=== PATIENT | male | born 1950 | race Caucasian/White ===

== ENCOUNTER → 2017-05-08 | Outpatient (CLI) | payer BC ==
[2017-05-08 08:16] LABS: Blood Urea Nitrogen 16 mg/dL (9-20); Non-African American GFR(MDRD) >60 (>60 ml/min/1.73 sqM)
--- NOTE | 2017-05-08 10:28 | CT ---
EXAMINATION TYPE: CT ChestAbdPelvis w con DATE OF EXAM: 05/08/2017 COMPARISON: CT abdomen pelvis April 28, 2016. PET CT May 17, 2016. HISTORY: Colon CA with last chemotherapy February 15 CT DLP: 476.9 mGycm. Automated Exposure Control for Dose Reduction was Utilized. CONTRAST: CT scan of the thorax, abdomen and pelvis is performed with IV Contrast, patient injected with 100 mL of Omnipaque 300. FINDINGS: LUNGS: There is redemonstration of moderate biapical pleural/parenchymal scarring unchanged from PET/ CT. And there is minimal linear scarring anteriorly in the right midlung axial image 46 just above di aphragm redemonstrated Remainder of lungs are clear without suspicious new parenchymal nodule or mass identified. There is no pleural effusion or pneumothorax seen. The tracheobronchial tree is patent. MEDIASTINUM: There are no greater than 1 cm hilar or mediastinal lymph nodes. No cardiomegaly or pe ricardial effusion is seen. Three-vessel coronary artery calcification is present. OTHER: No additional significant abnormality is seen. LIVER/GB: No significant abnormality is appreciated. PANCREAS: No significant abnormality is seen. SPLEEN: No significant abnormality is seen. ADRENALS: No significant abnormality is seen. KIDNEYS: Multiple simple appearing cysts are redemonstrated scattered throughout both kidneys. There is stable 3.0 cm exophytic hyperdense lesion medially upper pole level right kidney felt to reflect p roteinaceous cyst. BOWEL: There are surgical sutures from prior distal colonic surgery in the pelvis near axial image 10 3. The oral contrast does not reach colonic level making evaluation slightly suboptimal. Patient has very little intra-abdominal fat also making evaluation suboptimal. There is some prominence of fecal material throughout the colon. There is no suspicious small or large bowel dilatation seen. GENITAL ORGANS: Central zone calcifications are seen in normal size prostate gland. LYMPH NODES: No greater than 1cm abdominal or pelvic lymph nodes are appreciated. OSSEOUS STRUCTURES: There is facet arthropathy in the lower lumbar spine. OTHER: There is mild to moderate calcified plaque of the aorta extending into branch vessels. IMPRESSION: Interval partial colectomy at level of sigmoid colon. No suspicious residual or new mass or adenopathy is seen to suggest local or distant neoplastic recurrence.
== END | disposition home or self-care (01) ==
LOC: RADCTMAIN 07:26
PROVIDERS: ATTEND Internal Medicine Hematology & Oncology
DX: C18.7 Malignant neoplasm of sigmoid colon (principal); Z90.49 Acquired absence of other specified parts of digestive tract
CPT/HCPCS: 82565; 84520; 71260; 74177; 36415; Q9967

== ENCOUNTER → 2018-05-10 | Outpatient (CLI) | payer BC ==
[2018-05-10 11:31] LABS: Blood Urea Nitrogen 18 mg/dL (9-20)
--- NOTE | 2018-05-10 14:44 | CT ---
EXAMINATION TYPE: CT ChestAbdPelvis w con DATE OF EXAM: 05/10/2018 INDICATION: Follow up CT Hx. of colon CA. COMPARISON: 05/08/2017 CT DLP: 655 mGycm CONTRAST: Performed with Oral Contrast and with IV Contrast, patient injected with 100 mL of Isovue 300. TECHNIQUE: Axial images at 5 mm thick sections. Reconstructed images in the coronal plane. Delayed images through the kidneys. FINDINGS: CT CHEST: Portion of the thyroid visualized is normal. There is thickening along the superior posterior medial aspect of the right lung. This area measures approximately 2.7 x 1.4 cm was present previously. Milder thickening at the posterior medial left ape x is present. No enlarged mediastinal or hilar adenopathy is evident. The ascending aorta diameter at the level of the main pulmonary artery is 3.7 cm. The main pulmonary artery diameter at the bifurcation is 2.9 cm. Coronary artery calcification is likely present. CT ABDOMEN: Liver: Normal Spleen: Normal Pancreas: Normal Adrenal glands: The adrenal glands are normal. Gallbladder: Gallstone or sludge is within the fundus. Kidneys: No hydronephrosis is present. There is a 4.2 cm cyst on the superior lateral pole left kid cecilia measuring 17 Hounsfield units. Anterior portion upper pole left kidney measures 1.9 cm cyst in 6 Hounsfield units. There is a cyst at the posterior inferior pole left kidney measuring 6 Hounsfield u nits and 3.4 cm in size. There is a 0.9 cm cortical renal cyst at the inferior anterior pole right ki dney measuring 7 Hounsfield units. An additional cortical renal cyst is likely present on the anterio r mid to inferior pole right kidney measuring 0.9 cm. There is a cyst in the posterior medial right k idney measuring 13 Hounsfield units. 3 cm in size. A cyst superior pole right kidney measures 2 cm an d 5 Hounsfield units. There is a hypodense structure measuring 57 Hounsfield units and 3 cm in diameter extending from the superior medial portion right kidney. This is stable from 05/08/2017. Aorta: Vascular calcification is within the aorta. Inferior vena cava: Normal. CT PELVIS: Fecal debris is within the ascending transverse and descending colon. Sigmoid colon resection surgery is evident. There is fecal debris within the sigmoid colon to the rectum. Mild fecal retention may b e present. Small bowel loops distended with oral contrast are normal. Oral contrast extends to the tr ansverse colon. There are loops of bowel which are incompletely distended or lack oral contrast limit ing their evaluation. Appendix: Not identified. No suspicious tubular structures or inflammatory changes are evident. Urinary bladder: Normal. Genitourinary structures: Prostate has mild hypertrophy. Osseous structures: No suspicious lytic or sclerotic lesions. IMPRESSIONS: 1. No suspicious changes to suggest metastatic colon cancer. 2. Solid lesion versus proteinaceous cyst superior pole right kidney stable from comparison.
== END | disposition home or self-care (01) ==
LOC: RADCTMAIN 10:54
PROVIDERS: ATTEND Internal Medicine Hematology & Oncology
DX: C18.7 Malignant neoplasm of sigmoid colon (principal)
CPT/HCPCS: 82565; 84520; 71260; 74177; Q9967

== ENCOUNTER → 2019-05-13 | Outpatient (CLI) | payer BC ==
--- NOTE | 2019-05-13 12:37 | CT ---
EXAMINATION TYPE: CT ChestAbdPelvis w con DATE OF EXAM: 05/13/2019 COMPARISON: Prior CT May 10, 2018 and older CTs. PET/CT May 17, 2016. HISTORY: History of rectal cancer. CT DLP: 604.6 mGycm. Automated Exposure Control for Dose Reduction was Utilized. CONTRAST: CT scan of the thorax, abdomen and pelvis is performed with IV Contrast, patient injected with 100 mL of Isovue M300. FINDINGS: LUNGS: The lungs are grossly clear, there is no concerning parenchymal mass or nodule identified. T here is no pleural effusion or pneumothorax seen. The tracheobronchial tree is patent. MEDIASTINUM: There are no greater than 1 cm hilar or mediastinal lymph nodes. No pericardial effusi on is seen. OTHER: No additional significant abnormality is seen. LIVER/GB: No significant abnormality is appreciated. PANCREAS: No significant abnormality is seen. SPLEEN: No significant abnormality is seen. ADRENALS: No significant abnormality is seen. KIDNEYS: There are multiple thin-walled simple appearing cysts scattered throughout both kidneys. The re is 2.9 cm hyperdense exophytic lesion medially upper pole right kidney felt to reflect proteinaceo us or hemorrhagic cyst axial image 23 unchanged from priors. There is new 1.7 x 1.4 cm posterior left bladder wall mass axial image 107 confirmed coronal image 50 distinct from prostate gland worrisome for neoplasm. BOWEL: Surgical sutures at level of sigmoid rectal colon axial image 104 through 106. Oral contrast r eaches level of right colon. No suspicious small or large bowel dilatation. GENITAL ORGANS: Calcifications left aspect of prostate gland. LYMPH NODES: No greater than 1cm abdominal or pelvic lymph nodes are appreciated. OSSEOUS STRUCTURES: Mild disc space narrowing and vacuum disc phenomenon L5-S1 level. OTHER: Moderate calcified plaque of the aorta extends into branch vessels. IMPRESSION: New suspicious bladder wall mass, new primary bladder carcinoma suspected. Direct visuali zation is advised. No convincing evidence of new metastatic disease.
== END | disposition home or self-care (01) ==
LOC: RADCTMAIN 10:19
PROVIDERS: ATTEND Internal Medicine Hematology & Oncology
DX: C18.7 Malignant neoplasm of sigmoid colon (principal)
CPT/HCPCS: 82565; 84520; 71260; 74177; 36415; Q9967

== ENCOUNTER → 2019-06-16 | Outpatient (CLI) | payer BC ==
--- NOTE | 2019-06-16 12:14 | CT ---
EXAMINATION TYPE: CT angio neck DATE OF EXAM: 06/16/2019 COMPARISON: None HISTORY: 68-year-old male Carotid stenosis. TECHNIQUE: Contiguous axial scanning of the neck performed with IV Contrast, patient injected with 65 mL of Isovue 370. Coronal/sagittal MIP reconstructions performed. 3-D reconstructions generated on a dedicated independent workstation. CT DLP: 203.8 mGycm Automated exposure control for dose reduction was used. FINDINGS: Biapical pleural parenchymal scarring. Conventional arch vessel branching anatomy with occlusion of the left common carotid artery 1.5 cm ab ove its origin. No enhancement within the left internal carotid artery. Mild atherosclerotic calcifications at the right bifurcation with mild to moderate plaque in the prox imal right internal carotid artery just above the level of the bulb, refer to 3-D reconstruction imag e 13 where the vessel caliber is narrowed to 2.4 mm. This qualifies as a mild, just under 50% proxima l ICA stenosis. The left vertebral artery is diminutive. Both vertebral arteries appear otherwise patent throughout t heir course. Bones: Degenerative subluxation right sternoclavicular joint. IMPRESSION: 1. LEFT COMMON CAROTID ARTERY OCCLUSION LOCATED 1.5 CM ABOVE ITS ORIGIN FROM THE ARCH. CORRESPONDINGL Y, THERE IS NO ENHANCEMENT WITHIN THE LEFT INTERNAL CAROTID ARTERY. 2. MILD TO MODERATE ATHEROSCLEROTIC PLAQUE ON THE RIGHT WITH A MILD, JUST UNDER 50% PROXIMAL RIGHT IC A STENOSIS, LOCATED JUST ABOVE THE LEVEL OF THE CAROTID BULB. 3. DOMINANT RIGHT VERTEBRAL ARTERY.
== END | disposition home or self-care (01) ==
LOC: RADCTMAIN 10:14
PROVIDERS: ATTEND Thoracic Surgery (Cardiothoracic Vascular Surgery)
DX: I65.23 Occlusion and stenosis of bilateral carotid arteries (principal)
CPT/HCPCS: 70498; Q9967

== ENCOUNTER → 2019-07-01 | Outpatient (CLI) | payer BC ==
[2019-07-01 11:13] LABS: Basophils % (A) 1 %; Eosinophils # (A) 0.2 k/uL (0-0.7); Eosinophils % (A) 4 %; HCT 42.8 % (39.0-53.0); HGB 14.1 gm/dL (13.0-17.5); Lymphocytes # (A) 0.9 k/uL (1.0-4.8); Lymphocytes % (A) 18 %; MCH 30.5 pg (25.0-35.0); MCV 92.6 fL (80.0-100.0); Mean Platelet Volume 6.6; Monocytes # (A) 0.4 k/uL (0-1.0); Monocytes % (A) 8 %; Neutrophils # (A) 3.5 k/uL (1.3-7.7); Neutrophils % (A) 66 %; Platelet Count 244 k/uL (150-450); RBC 4.62 m/uL (4.30-5.90); RDW 13.3 % (11.5-15.5); WBC 5.3 k/uL (3.8-10.6)
[2019-07-01 11:25] LABS: African American GFR (CKD) >90 (>60 ml/min/1.73 sqM); Anion Gap 8 mmol/L; Blood Urea Nitrogen 15 mg/dL (9-20); Calcium 9.1 mg/dL (8.4-10.2); Carbon Dioxide 27 mmol/L (22-30); Chloride 103 mmol/L (98-107); Glucose 104 mg/dL (74-99); Non-African American GFR(CKD) 85 (>60 ml/min/1.73 sqM); Potassium 4.9 mmol/L (3.5-5.1); Sodium 138 mmol/L (137-145)
== END ==
LOC: LABPAT 10:46
PROVIDERS: ATTEND Urology
DX: Z01.818 Encounter for other preprocedural examination (principal); Z01.812 Encounter for preprocedural laboratory examination; Z01.810 Encounter for preprocedural cardiovascular examination; C67.9 Malignant neoplasm of bladder, unspecified; I45.10 Unspecified right bundle-branch block; R94.31 Abnormal electrocardiogram [ECG] [EKG]
CPT/HCPCS: 36415; 80048; 85025; 93005

== ENCOUNTER 2019-07-08 13:23 | Day surgery (SDC) | payer BC ==
[2019-07-04 11:26] VITALS: BMI 21.7
--- NOTE | 2019-07-06 22:30 | P.HPIHPCON ---
History of Present Illness H&P Date: 07/08/19 Chief Complaint: bladder tumor Mr Lovell is 68 yo male with hx of hematuria. He underwent a cystoscopy which showed a bladder tumor. Given the finding of bladder tumor on cystoscopy decision was made to proceed to the OR for TURBT. I discussed with him the risk of procedure including bleeding, infection, bladder perforation. I discussed risk from anesthesia including heart attack, stroke, and even . He understood all risks and agreed to proceed with TURBT Consent for Procedure: I have explained the operation/procedure to the patient, including the risks, benefits, side effects, alternative therapies (including not receiving the proposed treatment or service), the likelihood of the patient achieving his/her goals, and potential recuperation problems for the procedure/sedation/analgesia, as well as any blood products, if indicated. I also explained to the patient the risks, benefits and side effects of the alternatives, as well as the risks related to not receiving the proposed procedure, care, treatment, or services. Past Medical History Past Medical History: Cancer, Hearing Disorder / Deafness, Hypertension, Thyroid Disorder Additional Past Medical History / Comment(s): current bladder tumor, LYMPHOMA 2005, gianna HEARING LOSS worsened with RADIATION [place]. hx COLON CA took oral chemo post op, History of Any Multi-Drug Resistant Organisms: None Reported Past Surgical History: Bowel Resection Additional Past Surgical History / Comment(s): COLONOSCOPY, Past Anesthesia/Blood Transfusion Reactions: No Reported Reaction Smoking Status: Former smoker - Past Family History Brother(s) Family Medical History: Cancer Mother Family Medical History: No Reported History Medications and Allergies Home Medications Medication Instructions Recorded Confirmed Type Levothyroxine Sodium [Synthroid] 50 mcg PO DAILY 05/27/16 07/04/19 History Lisinopril 20 mg PO DAILY 07/04/19 07/04/19 History Allergies Allergy/AdvReac Type Severity Reaction Status Date / Time No Known Allergies Allergy Verified 07/04/19 11:19 Surgical - Exam - General well developed, well nourished - Respiratory normal expansion, normal respiratory effort - Abdomen Abdomen: soft, non tender Assessment and Plan Assessment: 68 yo male with hx of bladder tumor -OR for TURBT
[~2019-07-08 13:23] MED LIST: DEXAMETHASONE SOD PHOSPHATE 10 MG/ML 1 ML VIAL IV ONE; HYDROmorphone 0.5 MG/0.5 ML SYRINGE IVP PRN; LIDOCAINE 1% 20 ML VIAL (10MG/ML) FOR IV START INTRADERMA PRN; MIDAZOLAM 2 MG/2 ML VIAL IV PRN; ONDANSETRON 4 MG/2 ML VIAL IVP ONE; SCOPOLAMINE 1.5MG/72HR PATCH TRANSDERM ONE
[2019-07-08] MEDS: LACTATED RINGERS 1,000 ML IV SCH ×2 (14:12→19:09)
[2019-07-08 14:21] VITALS: RESP 16
[2019-07-08] MEDS ORDERED: METHYLENE BLUE 10 MG/ML (10 ML VIAL) ONE (14:39)
[2019-07-08] MEDS ORDERED: MIDAZOLAM 2 MG/2 ML VIAL ONE (14:39)
[2019-07-08] MEDS ORDERED: fentaNYL (PF) 50 MCG/ML 2 ML AMP ONE (14:39)
[2019-07-08] MEDS ORDERED: IOPAMIDOL-370 50ML BTL MISCELLANE ONE (15:45)
[2019-07-08 16:15] VITALS: TEMP 97.9
--- NOTE | 2019-07-08 16:20 | P.OP ---
Date of Procedure: 07/08/19 Preoperative Diagnosis: Bladder tumor Postoperative Diagnosis: Same Procedure(s) Performed: Cystoscopy, TURBT(large), left ureteral stent placement Implants: 6 Fr X 26 cm stent Anesthesia: MI Surgeon: Acosta Nicholson Estimated Blood Loss (ml): 20 Pathology: other (bladder tumor) Condition: stable Disposition: PACU Indications for Procedure: Mr Lovell is 68 yo male with hx of hematuria. He underwent a cystoscopy which showed a bladder tumor. Given the finding of bladder tumor on cystoscopy decision was made to proceed to the OR for TURBT. I discussed with him the risk of procedure including bleeding, infection, bladder perforation. I discussed r isk from anesthesia including heart attack, stroke, and even . He understood all risks and agreed to proceed with TURBT Operative Findings: Large bladder tumor along the left side of the trigone completely covering the left ureteral orifice. An additional satellite lesion a long the right posterior wall about 2 cm away from the right ureteral orifice. Total resection site was 6 cm. Description of Procedure: The patient was brought to the operating room, general anesthesia was induced. He was prepped and draped in sterile fashion and placed in a dorsal lithotomy position. ACMI Resectascope was inserted per urethra, cystoscopy was performed which showed a large papillary bladder tumor along the left trigone, the left ureteral orfice was not identified. There was an additional satellite lesion was along the right posterior wall, approximately 2 cm away from the right ureteral orifice. We attempted to identify the left ureteral orifice but it was completely covered by a papillary tumor. Both tumors were resected using the resectoscope and sent to pathology. The resection area was thoroughly fulgurated, but caution was taken not to fulgurate the possible area of the left ureteral orifice. The edges the tumor was also fulgurated. At this time cystoscope fitted with a 22 sheath was inserted per urethra and advanced in the bladder. The left ureteral orfice was visualized, of note tumor was covering the ureteral orfice completely, and the ureteral orfice was resected. Using a 6- Ugandan open-ended catheter we were able to intubate the left ureter. The catheter was advanced to renal pelvis retrograde pyelogram was performed to confirm that the catheter was in the renal pelvis. A 0.035 Glidewire was advanced through the open-ended catheter into the renal pelvis the catheter was removed with the wire in place. A 6-Ugandan by 26 cm stent was passed over the wire and into the renal pelvis. The proximal curl was visualized under fluoroscopy while the distal curl was visualized using the cystoscope. This time the cystoscope was withdrawn and the resectoscope was reinserted. At this time the tumor base was further resected, and hemostasis was achieved using cautery, with attention not to cauterize the left ureter. The bladder was emptied, the tumor chips were removed and sent to pathology. A 20-Ugandan Hoyos catheter was inserted and the balloon was inflated with 10 mL. The patient tolerated the procedure well and was taken to PACU in stable condition
--- NOTE | 2019-07-08 16:23 | FL ---
EXAMINATION TYPE: FL urography retrograde DATE OF EXAM: 07/08/2019 CLINICAL HISTORY: Ureter stent placement. Kidney stone. TECHNIQUE: Fluoroscopy. COMPARISON: CT May 13, 2019. FINDINGS: Fluoroscopic guidance was provided during ureter stent procedure performed by Dr. Nicholson. A total of 4 seconds of fluoroscopic time was utilized during the procedure and single spot fluorosc opic image is acquired. Single image acquired shows partial visualization of proximal ureter stent. IMPRESSION: As Above.
[2019-07-08] MEDS ORDERED: IBUPROFEN 200 MG TAB PO ONE (18:00)
[2019-07-08] MEDS ORDERED: LABETALOL 5 MG/ML VIAL MDV IV ONE (18:10)
[2019-07-08 18:18] VITALS: BP 150/88; PULSE 73
== END 2019-07-08 19:13 | disposition home or self-care (01) ==
LOC: OR 13:23
PROVIDERS: ATTEND Urology
DX: C67.0 Malignant neoplasm of trigone of bladder (principal); I10 Essential (primary) hypertension; E78.5 Hyperlipidemia, unspecified; I65.23 Occlusion and stenosis of bilateral carotid arteries; I72.9 Aneurysm of unspecified site; H91.93 Unspecified hearing loss, bilateral; R06.7 Sneezing; E07.9 Disorder of thyroid, unspecified; K08.109 Complete loss of teeth, unspecified cause, unspecified class; Z79.899 Other long term (current) drug therapy; Z79.890 Hormone replacement therapy; Z87.891 Personal history of nicotine dependence; Z92.3 Personal history of irradiation; Z85.72 Personal history of non-Hodgkin lymphomas; Z85.038 Personal history of other malignant neoplasm of large intestine; Z92.21 Personal history of antineoplastic chemotherapy; Z90.49 Acquired absence of other specified parts of digestive tract; Z98.890 Other specified postprocedural states; Z82.49 Family history of ischemic heart disease and other diseases of the circulatory system; Z80.9 Family history of malignant neoplasm, unspecified
CPT/HCPCS: 88307; 74420; 52240; 52332; C2625; J2250; J1100; J0690; J2405; Q9968; J3010; Q9967

== ENCOUNTER → 2020-01-11 | Outpatient (CLI) | payer BC ==
--- NOTE | 2020-01-11 10:54 | US ---
EXAMINATION TYPE: US kidneys/renal and bladder DATE OF EXAM: 01/11/2020 COMPARISON: 05/13/2019 CLINICAL HISTORY: C67.9 Neoplasm of bladder. Hx bladder tumor with removal x last year per patient EXAM MEASUREMENTS: Right Kidney: 9.2 x 6.0 x 5.8 cm Left Kidney: 10.2 x 4.4 x 5.6 cm Right Kidney: Multiple cysts seen throughout kidney. Largest measured. 1= Upper pole = 3.6 x 3.1 x 2.8 cm. 2- Medial= 2.6 x 2.5 x 2.7 cm Left Kidney: Multiple cysts seen throughout kidney. Largest measured. 1= lower lateral pole with sep tation = 4.0 x 3.4 x 3.7 cm. 2= Medial anterior with internal echoes = 3.7 x 3.8 x 2.9 cm Bladder: Posterior nonshadowing lesion adjacent to wall = 0.3 cm Left jet seen IMPRESSION: 1. No hydronephrosis or nephrolithiasis. 2. There is a 3 mm posterior wall nodule involving the bladder correlate clinically. 3. Bilateral simple appearing renal cysts.
== END | disposition home or self-care (01) ==
LOC: RADUSWWP 10:15
PROVIDERS: ATTEND Urology
DX: N32.89 Other specified disorders of bladder (principal); N28.1 Cyst of kidney, acquired; C67.9 Malignant neoplasm of bladder, unspecified
CPT/HCPCS: 76770

== ENCOUNTER → 2020-02-06 | Outpatient (CLI) | payer BC ==
[2020-02-06 10:58] LABS: Basophils # (A) 0.1 k/uL (0-0.2); Basophils % (A) 1 %; Eosinophils # (A) 0.4 k/uL (0-0.7); Eosinophils % (A) 6 %; HCT 42.8 % (39.0-53.0); HGB 14.2 gm/dL (13.0-17.5); Lymphocytes % (A) 16 %; MCH 30.9 pg (25.0-35.0); MCHC 33.2 g/dL (31.0-37.0); Mean Platelet Volume 6.6; Monocytes # (A) 0.4 k/uL (0-1.0); Monocytes % (A) 7 %; Neutrophils # (A) 4.2 k/uL (1.3-7.7); Neutrophils % (A) 68 %; Platelet Count 298 k/uL (150-450); RDW 13.7 % (11.5-15.5); WBC 6.1 k/uL (3.8-10.6)
[2020-02-06 11:18] LABS: Calcium 9.6 mg/dL (8.4-10.2); Potassium 5.4 mmol/L (3.5-5.1)
== END | disposition home or self-care (01) ==
LOC: LABPAT 09:47
PROVIDERS: ATTEND Urology
DX: Z01.818 Encounter for other preprocedural examination (principal); C67.9 Malignant neoplasm of bladder, unspecified
CPT/HCPCS: 36415; 80048; 85025

== ENCOUNTER 2020-02-13 08:01 | Day surgery (SDC) | payer BC ==
[2020-02-07 13:15] VITALS: BMI 21.4
--- NOTE | 2020-02-12 19:10 | P.HPIHPCON ---
History of Present Illness H&P Date: 02/13/20 Mr Lovell is 69 yo male with hx of LG Ta bladder cancer. He underwent a surveillance cystoscopy which showed evidence of recurrence of bladder tumor. Given the finding of bladder tumor on cystoscopy decision was made to proceed to the OR for TURBT. I discussed with him the risk of procedure including bleeding, infection, bladder perforation. I discussed risk from anesthesia including heart attack, stroke, and even . He understood all risks and agreed to proceed with TURBT Consent for Procedure: I have explained the operation/procedure to the patient, including the risks, benefits, side effects, alternative therapies (including not receiving the proposed treatment or service), the likelihood of the patient achieving his/her goals, and potential recuperation problems for the procedure/sedation/analgesia, as well as any blood products, if indicated. I also explained to the patient the risks, benefits and side effects of the alternatives, as well as the risks related to not receiving the proposed procedure, care, treatment, or services. Past Medical History Past Medical History: Cancer, Hearing Disorder / Deafness, Hypertension, Thyroid Disorder Additional Past Medical History / Comment(s): LYMPHOMA 2005; gianna HEARING LOSS R/T RADIATION [place]. COLON CA ,Bladder cancer History of Any Multi-Drug Resistant Organisms: None Reported Past Surgical History: Bowel Resection Additional Past Surgical History / Comment(s): COLONOSCOPY, Past Anesthesia/Blood Transfusion Reactions: No Reported Reaction Smoking Status: Former smoker - Past Family History Brother(s) Family Medical History: Cancer Mother Family Medical History: No Reported History Medications and Allergies Home Medications Medication Instructions Recorded Confirmed Type Levothyroxine Sodium [Synthroid] 50 mcg PO DAILY 05/27/16 02/07/20 History Lisinopril 20 mg PO DAILY 07/04/19 02/07/20 History Allergies Allergy/AdvReac Type Severity Reaction Status Date / Time No Known Allergies Allergy Verified 02/07/20 13:09 Surgical - Exam - General well developed, well nourished, no distress, no pain - Respiratory normal expansion, normal respiratory effort - Abdomen Abdomen: soft, non tender - Psychiatric oriented to time, oriented to person, oriented to place Assessment and Plan Assessment: 69 yo male with hx of bladder cancer -OR for TURBT
[~2020-02-13 08:01] MED LIST changes: +LACTATED RINGERS 1,000 ML IV SCH; +LIDOCAINE 1% (10MG/ML) FOR IV START INTRADERMA PRN; -LIDOCAINE 1% 20 ML VIAL (10MG/ML) FOR IV START INTRADERMA PRN; -ONDANSETRON 4 MG/2 ML VIAL IVP ONE; -SCOPOLAMINE 1.5MG/72HR PATCH TRANSDERM ONE
[2020-02-13 08:17] VITALS: TEMP 97.1
[2020-02-13] MEDS ORDERED: DEXAMETHASONE SOD PHOSPHATE 10 MG/ML 1 ML VIAL IV ONE (08:32)
[2020-02-13] MEDS ORDERED: LIDOCAINE 1% INJ 10MG/ML (20 ML MDV) ONE (09:26)
[2020-02-13] MEDS ORDERED: SUCCINYLCHOLINE CHLORIDE 100 MG/5 ML SYR IV ONE (09:26)
[2020-02-13] MEDS ORDERED: GLYCOPYRROLATE 0.2 MG/ML 2 ML VIAL ONE (09:26)
[2020-02-13] MEDS ORDERED: fentaNYL (PF) 50 MCG/ML 2 ML AMP ONE (09:26)
[2020-02-13] MEDS ORDERED: PHENYLEPHRINE-0.9% NACL SYG 1 MG/10 ML SYRINGE ONE (09:26)
[2020-02-13] MEDS ORDERED: ROCURONIUM BROMIDE 10 MG/ML 5 ML VIAL IV ONE (09:26)
[2020-02-13] MEDS ORDERED: PROPOFOL 10 MG/ML 20 ML VIAL IV ONE (09:26)
[2020-02-13] MEDS ORDERED: NEOSTIGMINE 1 MG/ML 10 ML VIAL ONE (09:26)
[2020-02-13] MEDS ORDERED: MIDAZOLAM 2 MG/2 ML VIAL ONE (09:26)
[2020-02-13] MEDS ORDERED: LACTATED RINGERS 1,000 ML IV ONE (10:40)
--- NOTE | 2020-02-13 10:48 | P.OP ---
Date of Procedure: 02/13/20 Preoperative Diagnosis: bladder cancer Postoperative Diagnosis: same Procedure(s) Performed: TURBT (large) Implants: none Anesthesia: MI Surgeon: Acosta Nicholson Estimated Blood Loss (ml): 10 Pathology: other (bladder tumors) Condition: stable Disposition: PACU Indications for Procedure: Mr Lovell is 69 yo male with hx of LG Ta bladder cancer. He underwent a surveillance cystoscopy which showed evidence of recurrence of bladder tumor. Given the finding of bladder tumor on cystoscopy decision was made to proceed to the OR for TURBT. I discussed with him the risk of procedure including bleeding, infection, bladder perforation. I discussed risk from anesthesia including heart attack, stroke, and even . He understood all risks and agreed to proceed with TURB Operative Findings: more than 20 bladder tumor along the posterior bladder wall, right lateral wall, and bladder dome. largest tumor was along the bladder dome measured 3 cm, all other tumors measured less than 0.5 cm. total resection area was approximetely 8cm. no evidence of recurrence along the scar, ureteral orfice visualized and no tumor in close proximety to ureteral orfice. Description of Procedure: The patient was brought to the operating room, general anesthesia was induced. He was prepped and draped in sterile fashion and placed in a dorsal lithotomy position. ACMI Resectascope was inserted per urethra, cystoscopy was performed which showed more than 20 bladder tumor along the posterior bladder wall, right lateral wall, and bladder dome. largest tumor was along the bladder dome measured 3 cm, all other tumors measured less than 0.5 cm. total resection area was approximetely 8cm. no evidence of recurrence along the scar, ureteral orfice visualized and no tumor in close proximety to ureteral orfice. After completion of resection. The resection area was thoroughly fulgurated. The bladder was emptied, the tumor chips were removed and sent to pathology. There was no evidence of bladder perforation and abdomen was soft at the end of case. A 20- [place] Hoyos catheter was inserted and the balloon was inflated with 10 mL. The patient tolerated the procedure well and was taken to PACU in stable condition
[2020-02-13] MEDS ORDERED: hydrALAZINE HCL 20 MG/ML 1 ML VIAL IV ONE (10:54)
[2020-02-13 13:12] VITALS: BP 162/87; PULSE 73; RESP 20
== END 2020-02-13 13:05 | disposition home or self-care (01) ==
LOC: OR 08:01
PROVIDERS: ATTEND Urology
DX: C67.2 Malignant neoplasm of lateral wall of bladder (principal); C67.1 Malignant neoplasm of dome of bladder; I10 Essential (primary) hypertension; E07.9 Disorder of thyroid, unspecified; H91.93 Unspecified hearing loss, bilateral; Z85.72 Personal history of non-Hodgkin lymphomas; Z92.3 Personal history of irradiation; Z85.038 Personal history of other malignant neoplasm of large intestine; Z90.49 Acquired absence of other specified parts of digestive tract; Z98.890 Other specified postprocedural states; Z87.891 Personal history of nicotine dependence; Z79.890 Hormone replacement therapy; Z79.899 Other long term (current) drug therapy; Z79.1 Long term (current) use of non-steroidal anti-inflammatories (NSAID); Z97.2 Presence of dental prosthetic device (complete) (partial); Z80.9 Family history of malignant neoplasm, unspecified
CPT/HCPCS: 84132; 88307; 52240; J2250; J0360; J1100; J2710; J0690; J2001; J3010; J2370; J0330; J2704; J1170

== ENCOUNTER → 2020-07-30 | Outpatient (CLI) | payer BC ==
--- NOTE | 2020-07-30 12:08 | CT ---
EXAMINATION TYPE: CT ChestAbdPelvis w con DATE OF EXAM: 07/30/2020 COMPARISON: 05/13/2019 and 05/10/2018 HISTORY: 69-year-old male Colon cancer, suspect METS TECHNIQUE: Contiguous axial scanning of the chest, abdomen, and pelvis performed with IV Contrast, pa tient injected with 100 mL of Isovue 300. Delayed images through the kidneys were obtained. Coronal/s agittal reconstructions performed. CT DLP: 530.1 mGycm Automated exposure control for dose reduction was used. FINDINGS: CHEST: Heart normal size without pericardial effusion. Three-vessel coronary artery calcifications are prese nt. Ectatic aortic root at 3.6 cm and ascending aorta at 3.9 cm. Ectatic upper descending thoracic aorta 3.1 cm. Redemonstrated occlusion of the left common carotid artery just after its origin. Scattered nonenlarged mediastinal lymph nodes are unchanged. No thoracic lymphadenopathy by CT size c riteria. Some strandy basilar atelectasis. Stable tiny calcified granuloma inferior lingula. Mild diffuse bron chial wall thickening and biapical pleural parenchymal scarring is unchanged. Very mild emphysematous change in the upper lungs. No consolidation or pleural effusion. ABDOMEN: Tiny hernia. No focal liver lesion or biliary ductal dilatation. Portal venous system is patent. Gallbladder, adrenal glands, spleen, and pancreas appear within normal limits. Redemonstrated bilateral renal cysts, largest measuring 4.3 cm. The medial upper pole cyst on the rig ht measures 3.5 cm, slightly increased in size from 3.2 cm, previously and has intermediate attenuati on suggesting a proteinaceous or complicated cyst. Moderate atherosclerotic calcifications infrarenal abdominal aorta without aneurysm. No dilated small bowel, free fluid, free air. Moderate to large stool burden without pericolonic infl ammatory change. Normal appendix. Oral contrast progressed to the hepatic flexure of the colon. There is a staple line at the rectosigmoid junction from prior resection and re-anastomosis. No mesenteric or retroperitoneal lymphadenopathy. PELVIS: Bladder is urine distended. Prostate gland is enlarged at 4.9 cm wide. No abnormal fluid collection i n the pelvis or pelvic lymphadenopathy. The previous pelvis nodularity posterior left bladder wall is no longer identified. This should be correlated clinically. Some ulcerated plaque within the left co mmon femoral artery. BONES: Mild degenerative change of the hips. Moderate degenerative disc disease L5-S1. No osseous destructiv e process. IMPRESSION: 1. STATUS POST RESECTION AND RE-ANASTOMOSIS AT THE RECTOSIGMOID JUNCTION. NO FINDINGS TO SUGGEST DISE ASE PROGRESSION OR RECURRENCE. 2. THE PREVIOUSLY SEEN MURAL BASED NODULARITY ALONG THE POSTERIOR LEFT BLADDER WALL IS NO LONGER IDEN TIFIED. CLINICAL CORRELATE. 3. INCIDENTAL: KNOWN LEFT COMMON CAROTID ARTERY OCCLUSION JUST AFTER ITS TAKEOFF. CAD. MINIMAL EMPHYS EMATOUS CHANGE. MODERATE TO LARGE STOOL BURDEN. NUMEROUS BILATERAL RENAL CYSTS.
== END | disposition home or self-care (01) ==
LOC: RADCTMAIN 07:52
PROVIDERS: ATTEND Internal Medicine Hematology & Oncology
DX: C18.7 Malignant neoplasm of sigmoid colon (principal); Z98.890 Other specified postprocedural states
CPT/HCPCS: 82565; 84520; 71260; 74177; 36415; Q9967

== ENCOUNTER 2021-01-23 21:48 | Observation (INO) | payer BC ==
[2021-01-23] MEDS ORDERED: SODIUM CHLORIDE 0.9% 500 ML 500 ML IV STA (23:05)
[2021-01-23] MEDS ORDERED: SODIUM CHLORIDE 0.9% 1,000 ML IV ONE (23:12)
[2021-01-23 23:41] LABS: Basophils % (A) 1 %; Eosinophils # (A) 0.1 k/uL (0-0.7); Eosinophils % (A) 2 %; HCT 39.6 % (39.0-53.0); HGB 13.5 gm/dL (13.0-17.5); Lymphocytes # (A) 0.7 k/uL (1.0-4.8); Lymphocytes % (A) 12 %; MCH 30.2 pg (25.0-35.0); MCV 88.8 fL (80.0-100.0); Mean Platelet Volume 6.7; Monocytes # (A) 0.4 k/uL (0-1.0); Monocytes % (A) 8 %; Neutrophils # (A) 4.3 k/uL (1.3-7.7); Neutrophils % (A) 76 %; Platelet Count 266 k/uL (150-450); RBC 4.46 m/uL (4.30-5.90); WBC 5.6 k/uL (3.8-10.6)
[2021-01-24 00:03] LABS: Albumin 4.1 g/dL (3.5-5.0); Calcium 9.5 mg/dL (8.4-10.2); Potassium 4.7 mmol/L (3.5-5.1); Total Bilirubin 0.4 mg/dL (0.2-1.3); Total Protein 6.8 g/dL (6.3-8.2)
--- NOTE | 2021-01-24 01:28 | ED ---
General Adult HPI - General Chief complaint: Dizziness Stated complaint: Dizzy Time Seen by Provider: 01/23/21 22:18 Source: patient Mode of arrival: wheelchair Limitations: physical limitation - History of Present Illness Initial comments: 70 year-old male patient presents to the emergency department for evaluation of dizziness. Patient states he has been having issues for the last few weeks, was admitted to [facility] in December for 4 days for similar symptoms. States they found is left carotid was 100% blocked and his right was 70% blocked. He states that a fter discharge he was feeling a little bit better then this morning the dizziness returned. States it is worse with standing, states that he gets sweaty and weak. States he did have an episode of vomiting after the dizziness started today. Reports mild frontal headache. Denies blurred or double vision. Denies any chest pain or shortness of breath. Patient denies any recent rash, fever, chills, cough, abdominal pain, diarrhea, constipation, back pain, numbness, tingling, hematuria, dysuria, urinary urgency, urinary frequency, or any other complaints. - Related Data Home Medications Medication Instructions Recorded Confirmed Levothyroxine Sodium [Synthroid] 50 mcg PO DAILY 05/27/16 02/13/20 lisinopriL 20 mg PO DAILY 07/04/19 02/13/20 Previous Rx's Medication Instructions Recorded Ketorolac [Toradol] 10 mg PO Q6HR #15 tab 02/13/20 Levofloxacin [Levaquin] 500 mg PO DAILY 3 Days #3 tab 02/13/20 Allergies Allergy/AdvReac Type Severity Reaction Status Date / Time No Known Allergies Allergy Verified 01/23/21 22:06 Review of Systems ROS Statement: Those systems with pertinent positive or pertinent negative responses have been documented in the HPI. ROS Other: All systems not noted in ROS Statement are negative. Past Medical History Past Medical History: Cancer, Hypertension, Thyroid Disorder Additional Past Medical History / Comment(s): LYMPHOMA 2006; gianna HEARING LOSS R/T RADIATION [place]. COLON CA , History of Any Multi-Drug Resistant Organisms: None Reported Past Surgical History: Bowel Resection Additional Past Surgical History / Comment(s): COLONOSCOPY, Past Anesthesia/Blood Transfusion Reactions: No Reported Reaction Past Psychological History: No Psychological Hx Reported Smoking Status: Never smoker Past Alcohol Use History: Occasional Past Drug Use History: None Reported - Past Family History Brother(s) Family Medical History: Cancer Mother Family Medical History: No Reported History General Exam Limitations: physical limitation General appearance: alert, in no apparent distress, other (Physical well- developed, well-nourished adult male patient in no acute distress. Vital signs upon presentation temperature 97.3F, pulse 97, respirations 20, blood pressure 119/76, pulse ox 99% on room air.) Eye exam: Present: normal appearance, PERRL, EOMI. Absent: scleral icterus, conjunctival injection, nystagmus, periorbital swelling ENT exam: Present: normal exam, normal oropharynx, mucous membranes moist Respiratory exam: Present: normal lung sounds bilaterally. Absent: respiratory distress, wheezes, rales, rhonchi, stridor Cardiovascular Exam: Present: regular rate, normal rhythm, normal heart sounds. Absent: systolic murmur, diastolic murmur, rubs, gallop, clicks GI/Abdominal exam: Present: soft, normal bowel sounds. Absent: distended, tenderness, guarding, rebound, rigid Neurological exam: Present: alert, oriented X3, CN II-XII intact Expanded Speech: Present: fluid speech Cranial nerves: EOM's Intact: Normal, Nystagmus: Normal Motor strength exam: RUE: 5, LUE: 5, RLE: 5, LLE: 5 Psychiatric exam: Present: normal affect, normal mood Skin exam: Present: warm, dry, intact, normal color. Absent: rash Course Vital Signs 01/23/21 01/23/21 01/23/21 22:03 23:12 23:13 Temperature 97.3 F L Pulse Rate 97 Respiratory 20 Rate Blood Pressure 119/76 Blood Pressure 108/77 88/64 [Right Arm] O2 Sat by Pulse 99 Oximetry EKG Findings - EKG Comments: EKG Findings:: EKG obtained at 2229 shows normal sinus rhythm with a right bundle branch block. Ventricular rate is 92, MA interval 126, QRS duration 122, QT 384, QTC 474. Medical Decision Making - Medical Decision Making 70-year-old male patient presents for evaluation of dizziness. Physical examination is unremarkable. Neurologically intact no focal deficits. Did have nursing staff perform orthostatic vital signs and blood pressures did initially drop into the 80s with standing. We did give a liter of fluids, check the lab work which was unremarkable, and recheck orthostatic vital signs. Blood pressure dropped into the 70 systolic. He will be admitted to the hospital for further evaluation and monitoring. We'll continue IV fluids. Patient is agreeable this plan. Case discussed with my attending Dr. Chapman. - Lab Data Result diagrams: 01/23/21 23:17 01/23/21 23:17 Lab Results 01/23/21 01/23/21 01/23/21 Range/Units 23:17 23:17 23:17 WBC 5.6 (3.8-10.6) k/uL RBC 4.46 (4.30-5.90) m/uL Hgb 13.5 (13.0-17.5) gm/dL Hct 39.6 (39.0-53.0) % MCV 88.8 (80.0-100.0) fL MCH 30.2 (25.0-35.0) pg MCHC 34.0 (31.0-37.0) g/dL RDW 13.0 (11.5-15.5) % Plt Count 266 (150-450) k/uL MPV 6.7 Neutrophils % 76 % Lymphocytes % 12 % Monocytes % 8 % Eosinophils % 2 % Basophils % 1 % Neutrophils # 4.3 (1.3-7.7) k/uL Lymphocytes # 0.7 L (1.0-4.8) k/uL Monocytes # 0.4 (0-1.0) k/uL Eosinophils # 0.1 (0-0.7) k/uL Basophils # 0.0 (0-0.2) k/uL Sodium 138 (137-145) mmol/L Potassium 4.7 (3.5-5.1) mmol/L Chloride 102 (98-107) mmol/L Carbon Dioxide 27 (22-30) mmol/L Anion Gap 9 mmol/L BUN 19 (9-20) mg/dL Creatinine 1.04 (0.66-1.25) mg/dL Est GFR (CKD-EPI)AfAm 85 (>60 ml/min/1.73 sqM) Est GFR (CKD-EPI)NonAf 74 (>60 ml/min/1.73 sqM) Glucose 116 H (74-99) mg/dL Plasma Lactic Acid Matt 1.0 (0.7-2.0) mmol/L Calcium 9.5 (8.4-10.2) mg/dL Total Bilirubin 0.4 (0.2-1.3) mg/dL AST 22 (17-59) U/L ALT 14 (4-49) U/L Alkaline Phosphatase 64 (38-126) U/L Troponin I (0.000-0.034) ng/mL Total Protein 6.8 (6.3-8.2) g/dL Albumin 4.1 (3.5-5.0) g/dL 01/23/21 Range/Units 23:17 WBC (3.8-10.6) k/uL RBC (4.30-5.90) m/uL Hgb (13.0-17.5) gm/dL Hct (39.0-53.0) % MCV (80.0-100.0) fL MCH (25.0-35.0) pg MCHC (31.0-37.0) g/dL RDW (11.5-15.5) % Plt Count (150-450) k/uL MPV Neutrophils % % Lymphocytes % % Monocytes % % Eosinophils % % Basophils % % Neutrophils # (1.3-7.7) k/uL Lymphocytes # (1.0-4.8) k/uL Monocytes # (0-1.0) k/uL Eosinophils # (0-0.7) k/uL Basophils # (0-0.2) k/uL Sodium (137-145) mmol/L Potassium (3.5-5.1) mmol/L Chloride (98-107) mmol/L Carbon Dioxide (22-30) mmol/L Anion Gap mmol/L BUN (9-20) mg/dL Creatinine (0.66-1.25) mg/dL Est GFR (CKD-EPI)AfAm (>60 ml/min/1.73 sqM) Est GFR (CKD-EPI)NonAf (>60 ml/min/1.73 sqM) Glucose (74-99) mg/dL Plasma Lactic Acid Matt (0.7-2.0) mmol/L Calcium (8.4-10.2) mg/dL Total Bilirubin (0.2-1.3) mg/dL AST (17-59) U/L ALT (4-49) U/L Alkaline Phosphatase (38-126) U/L Troponin I <0.012 (0.000-0.034) ng/mL Total Protein (6.3-8.2) g/dL Albumin (3.5-5.0) g/dL Disposition Clinical Impression: Dizziness, Orthostatic hypotension Disposition: ADMITTED IP TO THIS [facility] Condition: Serious Referrals: Enzo Cm DO [Primary Care Provider] - 1-2 days Decision to Admit Reason: Admit from EC Decision Date: 01/24/21 Decision Time: 01:33
[2021-01-24] MEDS ORDERED: NALOXONE 0.4 MG/ML 1 ML VIAL IV PRN (01:33)
[2021-01-24] MEDS: SODIUM CHLORIDE 0.9% 1,000 ML IV SCH ×2 (02:37→18:05)
[2021-01-24 03:10] LABS: Appearance,Urine Clear (Clear); Bilirubin,Urine Negative (Negative); Blood,Urine Negative (Negative); Color,Urine Light Yellow; Glucose,Urine (UA) Negative (Negative); Ketones,Urine Negative (Negative); Leukocyte Esterase,Urine Negative (Negative); Nitrite,Urine Negative (Negative); PH, Urine 6.5 (5.0-8.0); Protein,Urine Negative (Negative); Specific Gravity,Urine 1.011 (1.001-1.035); Urobilinogen,Urine <2.0 mg/dL (<2.0)
[2021-01-24] MEDS: LEVOTHYROXINE 50 MCG TAB PO SCH (10:24)
[2021-01-24] MEDS: PANTOPRAZOLE 40 MG/10 ML VIAL IVP SCH (10:24)
--- NOTE | 2021-01-24 11:17 | P.CRDCN ---
History of Present Illness History of present illness: HISTORY OF PRESENTING ILLNESS This is a pleasant 70-year-old with past medical history significant for hypertension, hyperlipidemia, carotid artery stenosis, orthostatic hypotension, previous tobacco abuse, bladder cancer, lymphoma status post head and neck radiation who presents secondary to issues with orthostatic hypotension. Patient states he has been having issues since August 2020. He has been on lisinopril and amlodipine for a few years and believes there may have been some recent adjustments. He normally follows with Dr. Cm. He was admitted to [facility] 3 weeks ago for proximally 4 days and had workup including carotid ultrasound which he believes was stable. This has been followed by Dr. Booth and he states he has 100% stenosis of the left carotid and 75% of the right however has not met criteria for intervention. He states he been discharged home and had been doing okay with intermittent episodes of feeling lightheaded which may occur every other day. Yesterday however he was bending over to reach something and attempt of this for 5 times w ith feeling lightheaded each time and therefore had to sit down in his truck. He was able to walk into his house with the help of a railing and took his blood pressure with a wrist cuff and stated it was up in the 150s and therefore took more blood pressure medication. Discussed that this is counterintuitive and patient knows not to do the scan. He denies any chest pain, pressure, shortness breath. He has a history of previous tobacco abuse however quit approximately 3 or 4 years ago. He does have a history of head and neck radiation for lymphoma and therefore gets dry mouth. The blood pressure 119/76. Orthostatic vitals with 122/82 supine, 108/77 sitting and 88/64 standing. Patient has been receiving IV fluids however admits to still feeling somewhat lightheaded when standing up. Cell count 5.6, hemoglobin 13.5, platelets 266, sodium 138, potassium 4.7, and 19, creatinine 1.0, then less than 0.012. EKG shows normal sinus rhythm, right bundle branch block without significant ST-T wave abnormalities. Patient had a CTA from 06/2019 which showed left common carotid artery 100% stenosis, right 50% stenosis at the time, dominant right vertebral artery. REVIEW OF SYSTEMS At the time of my exam: CONSTITUTIONAL: Denies fever or chills. CARDIOVASCULAR: Denies chest pain, shortness of breath, orthopnea, PND or palpitations. + lightheadedness RESPIRATORY: Denies cough. GASTROINTESTINAL: Denies abdominal pain, diarrhea, constipation, nausea or vomiting. MUSCULOSKELETAL: Denies myalgias. NEUROLOGIC: Denies numbness, tingling or weakness. ENDOCRINE: Denies fatigue, weight change, polydipsia or polyurina. GENITOURINARY: Denies burning, hematuria or urgency with micturation. HEMATOLOGIC: Denies history of anemia or bleeding. PHYSICAL EXAMINATION Vital signs reviewed. CONSTITUTIONAL: No apparent distress. HEENT: Head is normocephalic. Pupils are equal, round. Sclerae anicteric. Mucous membranes of the mouth are moist. No JVD. +right carotid bruit. CHEST EXAMINATION: Lungs are clear to auscultation. No chest wall tenderness is noted on palpation or with deep breathing. HEART EXAMINATION: Regular rate and rhythm. S1, S2 heard. No murmurs, gallops or rub. ABDOMEN: Soft, nontender. Positive bowel sounds. EXTREMITIES: 2+ peripheral pulses, no lower extremity edema and no calf tenderness. NEUROLOGIC EXAMINATION: Patient is awake, alert and oriented x3. ASSESSMENT 1. Orthostatic hypotension, likely exacerbated by carotid disease 2. Essential hypertension, reportedly labile 3. Carotid artery stenosis. Known 100% stenosis of left common carotid as well as reported 75% stenosis by most recent carotid ultrasound from [facility] 4. Prior history of tobacco abuse 5. History of head and neck radiation 6. Right bundle branch block PLAN Patient with worsening orthostatic hypotension, lightheadedness and Lexie. This is likely exacerbated by his carotid artery stenosis. He had extensive workup performed at [facility] a few weeks ago. We will obtain these records. May consider CTA for further evaluation to exclude any progression of carotid disease however obtain ultrasound from [facility] first. Would allow permissive mild hypertension as patient is very symptomatic at this time. Continue to monitor response to IV fluids. Hold antihypertensives and slowly reintroduce as needed. Further recommendations to follow. Past Medical History Past Medical History: Cancer, Hypertension, Thyroid Disorder Additional Past Medical History / Comment(s): LYMPHOMA 2005; gianna HEARING LOSS R/T RADIATION [place]. COLON CA , History of Any Multi-Drug Resistant Organisms: None Reported Past Surgical History: Bowel Resection Additional Past Surgical History / Comment(s): COLONOSCOPY, Past Anesthesia/Blood Transfusion Reactions: No Reported Reaction Past Psychological History: No Psychological Hx Reported Smoking Status: Never smoker Past Alcohol Use History: Occasional Additional Past Alcohol Use History / Comment(s): SMOKED 30-35 YEARS, 1 - 1 1/2 PPD, QUIT 2010 Past Drug Use History: None Reported - Past Family History Brother(s) Family Medical History: Cancer Mother Family Medical History: No Reported History Medications and Allergies Home Medications Medication Instructions Recorded Confirmed Type Levothyroxine Sodium [Synthroid] 50 mcg PO DAILY 05/27/16 01/24/21 History lisinopriL 20 mg PO DAILY 07/04/19 01/24/21 History Meclizine [Antivert] 12.5 mg PO TID PRN 01/24/21 01/24/21 History Tamsulosin HCl [Flomax] 0.4 mg PO DAILY 01/24/21 01/24/21 History amLODIPine [Norvasc] 5 mg PO DAILY 01/24/21 01/24/21 History tadalafiL [Tadalafil] 20 mg PO Q72H PRN 01/24/21 01/24/21 History Allergies Allergy/AdvReac Type Severity Reaction Status Date / Time No Known Allergies Allergy Verified 01/24/21 07:41 Physical Exam Vitals: Vital Signs Temp Pulse Pulse Resp BP BP Pulse Ox 01/24/21 07:29 96 01/24/21 07:00 97.5 F L 80 95 H 119/73 95 01/24/21 02:20 97.9 F 92 16 149/90 98 01/24/21 01:55 85 16 132/87 94 L 01/24/21 01:35 77/65 01/24/21 01:30 109/77 01/23/21 23:13 88/64 01/23/21 23:12 108/77 01/23/21 22:03 97.3 F L 97 20 119/76 99 Intake and Output 01/23/21 01/24/21 01/24/21 22:59 06:59 14:59 Intake Total 300 Output Total 500 Balance -500 300 Intake: Oral 300 Output: Urine 500 Other: # Voids 1 Weight 68.039 kg 68.039 kg Results 01/23/21 23:17 01/23/21 23:17 Cardiac Enzymes 01/23/21 01/23/21 Range/Units 23:17 23:17 AST 22 (17-59) U/L Troponin I <0.012 (0.000-0.034) ng/mL CBC 01/23/21 Range/Units 23:17 WBC 5.6 (3.8-10.6) k/uL RBC 4.46 (4.30-5.90) m/uL Hgb 13.5 (13.0-17.5) gm/dL Hct 39.6 (39.0-53.0) % Plt Count 266 (150-450) k/uL Comprehensive Metabolic Panel 01/23/21 Range/Units 23:17 Sodium 138 (137-145) mmol/L Potassium 4.7 (3.5-5.1) mmol/L Chloride 102 (98-107) mmol/L Carbon Dioxide 27 (22-30) mmol/L BUN 19 (9-20) mg/dL Creatinine 1.04 (0.66-1.25) mg/dL Glucose 116 H (74-99) mg/dL Calcium 9.5 (8.4-10.2) mg/dL AST 22 (17-59) U/L ALT 14 (4-49) U/L Alkaline Phosphatase 64 (38-126) U/L Total Protein 6.8 (6.3-8.2) g/dL Albumin 4.1 (3.5-5.0) g/dL Current Medications Generic Name Dose Route Start Last Admin Trade Name Freq PRN Reason Stop Dose Admin Sodium Chloride 1,000 mls @ 75 mls/hr 01/24/21 01:45 01/24/21 02:37 Saline 0.9% IV 75 mls/hr .[id number] PATRICIA Administration Levothyroxine Sodium 50 mcg 01/24/21 09:15 01/24/21 10:24 Levothyroxine 50 Mcg Tab PO 50 mcg 0630 PATRICIA Administration Naloxone HCl 0.2 mg 01/24/21 01:33 Naloxone 0.4 Mg/Ml 1 Ml Vial IV Q2M PRN Opioid Reversal Pantoprazole Sodium 40 mg 01/24/21 09:15 01/24/21 10:24 Pantoprazole 40 Mg/10 Ml Vial IVP 40 mg DAILY PATRICIA Administration Intake and Output 01/23/21 01/24/21 01/24/21 22:59 06:59 14:59 Intake Total 300 Output Total 500 Balance -500 300 Intake: Oral 300 Output: Urine 500 Other: # Voids 1 Weight 68.039 kg 68.039 kg 01/23/21 23:17 01/23/21 23:17
--- NOTE | 2021-01-24 14:27 | P.HPIM ---
History of Present Illness H&P Date: 01/24/21 Chief Complaint: Dizziness This is a 70-year-old gentleman with past medical history of colon cancer, bowel resection, lymphoma-status post chemotherapy/radiation, hypertension, hypothyroidism, hearing loss with hearing aid, prior nicotine dependence presented to the ER with complaints of dizziness. Reports neighbor's dog got into his trash, requiring him to bend over several times, 5-6, picking up trash off the ground and became dizzy. Worsened with standing, becomes weaker with diaphoresis .He proceeded inside took another Antivert as well as another " blood pressure pill". Symptoms persisted and patient presented to the ER. On admission heart rate 97, blood pressure 119/76, dropping down as low as 77/65 with O2 sats in the high 90s on room air. Denies syncope. Denies visual deficits. Denies any chest pain, palpitations or shortness of breath. Denies any nausea vomiting or diarrhea. No abdominal pain. Afebrile, normal WBC. Hematology, chemistry panel is unremarkable. Troponin less than 0.012. EKG reported normal sinus rhythm, right bundle branch block. Orthostatic vital signs pending. Chronic left carotid occlusion, 61% stenosis of the right proximal internal carotid artery and 76% with right proximal external carotid artery as per [facility] ultrasound 12/29/20. [facility] Echo 01/01/2021 reported normal LV function, EF 55-60%. Review of Systems ROS Statement: Those systems with pertinent positive or pertinent negative responses have been documented in the HPI. ROS Other: All systems not noted in ROS Statement are negative. Past Medical History Past Medical History: Cancer, Hypertension, Thyroid Disorder Additional Past Medical History / Comment(s): LYMPHOMA 2005; gianna HEARING LOSS R/T RADIATION [place]. COLON CA , History of Any Multi-Drug Resistant Organisms: None Reported Past Surgical History: Bowel Resection Additional Past Surgical History / Comment(s): COLONOSCOPY, Past Anesthesia/Blood Transfusion Reactions: No Reported Reaction Past Psychological History: No Psychological Hx Reported Smoking Status: Never smoker Past Alcohol Use History: Occasional Additional Past Alcohol Use History / Comment(s): SMOKED 30-35 YEARS, 1 - 1 1/2 PPD, QUIT 2009 Past Drug Use History: None Reported - Past Family History Brother(s) Family Medical History: Cancer Mother Family Medical History: No Reported History Medications and Allergies Home Medications Medication Instructions Recorded Confirmed Type Levothyroxine Sodium [Synthroid] 50 mcg PO DAILY 05/27/16 01/24/21 History lisinopriL 20 mg PO DAILY 07/04/19 01/24/21 History Meclizine [Antivert] 12.5 mg PO TID PRN 01/24/21 01/24/21 History Tamsulosin HCl [Flomax] 0.4 mg PO DAILY 01/24/21 01/24/21 History amLODIPine [Norvasc] 5 mg PO DAILY 01/24/21 01/24/21 History tadalafiL [Tadalafil] 20 mg PO Q72H PRN 01/24/21 01/24/21 History Allergies Allergy/AdvReac Type Severity Reaction Status Date / Time No Known Allergies Allergy Verified 01/24/21 07:41 Physical Exam Vitals: Vital Signs Temp Pulse Pulse Resp BP BP Pulse Ox 01/24/21 07:29 96 01/24/21 07:00 97.5 F L 80 95 H 119/73 95 01/24/21 02:20 97.9 F 92 16 149/90 98 01/24/21 01:55 85 16 132/87 94 L 01/24/21 01:35 77/65 01/24/21 01:30 109/77 01/23/21 23:13 88/64 01/23/21 23:12 108/77 01/23/21 22:03 97.3 F L 97 20 119/76 99 Intake and Output 01/23/21 01/24/21 01/24/21 22:59 06:59 14:59 Output Total 500 Balance -500 Output: Urine 500 Other: # Voids 1 Weight 68.039 kg 68.039 kg PHYSICAL EXAM: VITAL SIGNS: [As above] GENERAL: Sitting up in bed, no acute distress. HEENT: Conjunctivae normal. eyes normal. Oral mucosa moist. NECK: No JVD. No thyroid enlargement. No LNs CARDIOVASCULAR: S1, S2 regular. No murmur RESPIRATION: Breath sounds diminished in the bases. No rhonchi or crackles. No bronchial breathing. ABDOMEN: Soft, nontender . No guarding. no masses palpable. No ascites, no hepatomegaly,Bowel sounds heard. LEGS: No edema. no swelling PSYCHIATRY: Alert and oriented X3, mood and affect normal. NERVOUS SYSTEM: Cranial N 2-12 grossly normal. Moves all 4 limbs. No focal deficits. Strength and sensation grossly intact.. Skin: Warm and dry, no rash Lymphatic system. No LN neck axilla. Results CBC & Chem 7: 01/23/21 23:17 01/23/21 23:17 Labs: Abnormal Lab Results - Last 24 Hours (Table) 01/23/21 01/23/21 Range/Units 23:17 23:17 Lymphocytes # 0.7 L (1.0-4.8) k/uL Glucose 116 H (74-99) mg/dL Thrombosis Risk Factor Assmnt - Choose All That Apply Other Risk Factors: Yes Each Risk Factor Represents 2 Points: Age 61-74 years Other congenital or acquired thrombophilia - If yes, enter type in comment: No Thrombosis Risk Factor Assessment Total Risk Factor Score: 2 Thrombosis Risk Factor Assessment Level: Low Risk Assessment and Plan Assessment: Dizziness, orthostatic hypotension Chronic left carotid occlusion, 61% stenosis of the right proximal internal carotid artery and 76% with right proximal external carotid artery as per [facility] ultrasound 12/29/20 Hypertension Hypothyroidism Colon CA, hx of sigmoid resection Lymphoma, chemotherapy, radiation of neck,follows with Dr. Hernadez History of nicotine dependence Plan: Continue on current medication regime ,monitoring and symptomatic treatment. Home meds reviewed, resumed accordingly antihypertensives currently on hold. Maintain IV fluid hydration .Extensive workup including neurology approximately one month ago at [facility] for similar presentation, records ordered. Cardiology consulted. CTA pending. The impression and plan of care has been dictated as directed. : I performed a history and examination of this patient, discussed the same with the dictator. I agree with the dictator's note ,documented as a scribe. Any additional findings or plans will be noted.
--- NOTE | 2021-01-24 16:54 | CT ---
EXAMINATION TYPE: CT angio neck DATE OF EXAM: 01/24/2021 COMPARISON: 06/16/2019 HISTORY: 70-year-old male Carotid stenosis and dizziness. Lightheadedness. TECHNIQUE: Contiguous axial scanning of the neck performed with IV Contrast, patient injected with 65 ml mL of Isovue 370. Coronal/sagittal MIP reconstructions performed. 3-D reconstructions generated on a dedicated independent workstation. CT DLP: 398 mGycm Automated exposure control for dose reduction was used. FINDINGS: Biapical pleural parenchymal scarring. Bronchial wall thickening suggests bronchitis or chronic asthm a. Conventional arch vessel branching anatomy with redemonstrated occlusion of the left common carotid a rtery 1.5 cm above its origin. No enhancement within the left internal carotid artery. Some reconstit ution partially visualized of the clinoid and supraclinoid portion of the left ICA. Mild atherosclerotic calcifications at the right bifurcation with redemonstrated focal plaque in the proximal right internal carotid artery just above the level of the bulb, refer to 3-D reconstruction image 6. Narrowing here is remains at just under 50% stenosis by NASCET criteria. There is increased eccentric plaque within the distal left subclavian artery now severe stenosis to s ubtotal occlusion of the diminutive left vertebral artery. There is faint reconstitution of the V2 se gment and a couple focal severe stenoses of the V4 segment. The right vertebral artery appears patent throughout its course. Bones: Degenerative subluxation/dislocation right sternoclavicular joint. IMPRESSION: 1. Redemonstrated left common carotid artery occlusion 1.5 cm above its origin. Nonopacification of t he cervical left ICA. Some reconstitution is partially visualized within the intracranial clinoid and supraclinoid portion. 2. Known nondominant left vertebral artery but now with a new severe stenosis to subtotal occlusion a t its origin. There is faint reconstitution of the V2 segment along with a couple focal severe stenos is of the intracranial V4 segment. 3. Stable mild, just under 50% proximal right ICA stenosis.
[2021-01-25] MEDS: SODIUM CHLORIDE 0.9% 1,000 ML IV SCH (04:23)
[2021-01-25] MEDS: LEVOTHYROXINE 50 MCG TAB PO SCH (05:46)
[2021-01-25 08:03] VITALS: RESP 19
[2021-01-25] MEDS: PANTOPRAZOLE 40 MG/10 ML VIAL IVP SCH (08:40)
[2021-01-25 10:36] LABS: African American GFR (CKD) 101.4 (60.0-200.0); Anion Gap 5.7 mmol/L (4.00-12.00); BUN/Creat Ratio 15.56 Ratio (12.00-20.00); Calcium 8.4 mg/dL (8.7-10.3); Carbon Dioxide 25.3 mmol/L (21.6-31.8); Non-African American GFR(CKD) 87.5 (60.0-200.0); Potassium 4.4 mmol/L (3.5-5.5)
--- NOTE | 2021-01-25 13:15 | P.PN ---
Subjective HISTORY OF PRESENTING ILLNESS This is a pleasant 70-year-old with past medical history significant for hypertension, hyperlipidemia, carotid artery stenosis, orthostatic hypotension, previous tobacco abuse, bladder cancer, lymphoma status post head and neck radiation who presents secondary to issues with orthostatic hypotension. Patient states he has been having issues since August 2020. He has been on lisinopril and amlodipine for a few years and believes there may have been some recent adjustments. He normally follows with Dr. Cm. He was admitted to [facility] 3 weeks ago for proximally 4 days and had workup including carotid ultrasound which he believes was stable. This has been followed by Dr. Booth and he states he has 100% stenosis of the left carotid and 75% of the right however has not met criteria for intervention. He states he been discharged home and had been doing okay with intermittent episodes of feeling lightheaded which may occur every other day. Yesterday however he was bending over to reach something and attempt of this for 5 times with feeling lightheaded each time and therefore had to sit down in his truck. He was able to walk into his house with the help of a railing and took his blood pressure with a wrist cuff and stated it was up in the 150s and therefore took more blood pressure medication. Discussed that this is counterintuitive and patient knows not to do the scan. He denies any chest pain, pressure, shortness breath. He has a history of previous tobacco abuse however quit approximately 3 or 4 years ago. He does have a history of head and neck radiation for lymphoma and therefore gets dry mouth. The blood pressure 119/76. Orthostatic vitals with 122/82 supine, 108/77 sitting and 88/64 standing. Patient has been receiving IV fluids however admits to still feeling somewhat lightheaded when standing up. Cell count 5.6, hemoglobin 13.5, platelets 266, sodium 138, potassium 4.7, and 19, creatinine 1.0, then less than 0.012. EKG shows normal sinus rhythm, right bundle branch block without significant ST-T wave abnormalities. Patient had a CTA from 06/2019 which showed left common carotid artery 100% stenosis, right 50% stenosis at the time, dominant right vertebral artery. 01/25/21 Patient seen and examined. Patient states he is feeling better and able to walk to the bathroom without white headedness. He has been stopped on all his blood pressure medications. He did have a CTA performed yesterday which showed similar left common carotid artery occlusion, right internal carotid artery 50% stenosis, left vertebral artery severe versus subtotal occlusion which is new from prior. REVIEW OF SYSTEMS At the time of my exam: CONSTITUTIONAL: Denies fever or chills. CARDIOVASCULAR: Denies chest pain, shortness of breath, orthopnea, PND or palpitations. + lightheadedness RESPIRATORY: Denies cough. GASTROINTESTINAL: Denies abdominal pain, diarrhea, constipation, nausea or vomiting. MUSCULOSKELETAL: Denies myalgias. NEUROLOGIC: Denies numbness, tingling or weakness. ENDOCRINE: Denies fatigue, weight change, polydipsia or polyurina. GENITOURINARY: Denies burning, hematuria or urgency with micturation. HEMATOLOGIC: Denies history of anemia or bleeding. PHYSICAL EXAMINATION Vital signs reviewed. CONSTITUTIONAL: No apparent distress. HEENT: Head is normocephalic. Pupils are equal, round. Sclerae anicteric. Mucous membranes of the mouth are moist. No JVD. +right carotid bruit. CHEST EXAMINATION: Lungs are clear to auscultation. No chest wall tenderness is noted on palpation or with deep breathing. HEART EXAMINATION: Regular rate and rhythm. S1, S2 heard. No murmurs, gallops or rub. ABDOMEN: Soft, nontender. Positive bowel sounds. EXTREMITIES: 2+ peripheral pulses, no lower extremity edema and no calf tenderness. NEUROLOGIC EXAMINATION: Patient is awake, alert and oriented x3. ASSESSMENT 1. Orthostatic hypotension, likely exacerbated by carotid disease 2. Essential hypertension, reportedly labile 3. Carotid artery stenosis. Known 100% stenosis of left common carotid with CTA showing 50% right internal carotid artery stenosis 4. Prior history of tobacco abuse 5. History of head and neck radiation 6. Right bundle branch block 7. 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 Would recommend continuing to hold antihypertensive medications going home and have discussed with patient checking his blood pressure with a normal bicep cough and not his wrist cuff he has been using. Rule out whitecoat hypertension and possible overmedication. Patient stable from a cardiology standpoint for discharge. No further recommendations from cardiology standpoint. Objective - Vital Signs Vital signs: Vital Signs Temp 97.5 F L 01/25/21 07:00 Pulse 84 01/25/21 08:41 Resp 19 01/25/21 08:41 BP 130/80 01/25/21 08:41 Pulse Ox 96 01/25/21 08:41 Intake & Output 01/24/21 01/25/21 01/25/21 18:59 06:59 18:59 Intake Total 600 1200 240 Output Total 2350 1400 Balance 600 -1150 -1160 Weight 68.039 kg Intake: IV 1200 Sodium Chloride 0.9% 1, 1200 000 ml @ 75 mls/hr IV . [id number] FOR[facility], 1928–1983 Rx#:[id number] Oral 600 240 Output: Urine 2350 1400 Other: Voiding Method Toilet Urinal # Voids 2 2 - Labs CBC & Chem 7: 01/23/21 23:17 01/25/21 05:03 Labs: Abnormal Lab Results - Last 24 Hours (Table) 01/25/21 Range/Units 05:03 Calcium 8.4 L (8.7-10.3) mg/dL
[2021-01-25 14:51] VITALS: BP 160/88; PULSE 79; TEMP 98
--- NOTE | 2021-01-25 16:25 | P.DS ---
Providers Date of admission: 01/24/21 01:10 Expected date of discharge: 01/25/21 Attending physician: Enzo Cm Consults: 01/24/21 09:06 Consult Physician Routine Consulting Provider: Marcus Saba Consult Reason/Comments: near syncope, orthostatic hypotension Do you want consulting provider notified?: Yes Primary care physician: Enzo Cm [facility] Course: Final Diagnoses: Dizziness, orthostatic hypotension suspect exacerbated by carotid disease as per cardiology Chronic left carotid occlusion, 61% stenosis of the right proximal internal carotid artery and 76% with right proximal external carotid artery as per [facility] ultrasound 12/29/20. Severe, questionable subtotal occlusion of left vertebral artery Hypertension Hypothyroidism Colon CA, hx of sigmoid resection Lymphoma, chemotherapy, radiation of neck,follows with Dr. Hernadez History of nicotine dependence Hospital course:This is a 70-year-old gentleman with past medical history of colon cancer, bowel resection, lymphoma-status post chemotherapy/radiation, hypertension, hypothyroidism, hearing loss with hearing aid, prior nicotine dependence presented to the ER with complaints of dizziness. Reports neighbor's dog got into his trash, requiring him to bend over several times, 5-6, picking up trash off the ground and became dizzy. Worsened with standing, becomes weaker with diaphoresis .He proceeded inside took another Antivert as well as another " blood pressure pill". Symptoms persisted and patient presented to the ER. On admission heart rate 97, blood pressure 119/76, dropping down as low as 77/65 with O2 sats in the high 90s on room air. Denies syncope. Denies visual deficits. Denies any chest pain, palpitations or shortness of breath. Denies any nausea vomiting or diarrhea. No abdominal pain. Afebrile, normal WBC. Hematology, chemistry panel is unremarkable. Troponin less than 0.012. EKG reported normal sinus rhythm, right bundle branch block. Orthostatic vital signs pending. Chronic left carotid occlusion, 61% stenosis of the right proximal internal carotid artery and 76% with right proximal external carotid artery as per [facility] ultrasound 12/29/20. [facility] Echo 01/01/2021 reported normal LV function, EF 55-60%. Maintained on IV fluid hydration .Extensive workup including neurology approximately one month ago at [facility] for similar presentation, records ordered. Cardiology consulted. CTA pending. CD performed yesterday reporting similar left common carotid artery occlusion right internal carotid artery 50% stenosis, left vertebral artery severe versus subtotal occlusion which is new from prior. Symptoms resolved after receiving IV fluid hydration and holding antihypertensives. Significant clinical improvement. Cardiology recommending continue holding antihypertensives, maintain log of daily blood pressures by upper arm cuff. Cleared by cardiology for discharge. Patient will be discharged home today in a stable condition with guarded prognosis. The impression and plan of care has been dictated as directed. : I performed a history and examination of this patient, discussed the same with the dictator. I agree with the dictator's note ,documented as a scribe. Any additional findings or plans will be noted. Patient Condition at Discharge: Stable Plan - Discharge Summary New Discharge Prescriptions: Continue Levothyroxine Sodium [Synthroid] 50 mcg PO DAILY Meclizine [Antivert] 12.5 mg PO TID PRN PRN Reason: Vertigo Tamsulosin HCl [Flomax] 0.4 mg PO DAILY Discontinued lisinopriL 20 mg PO DAILY tadalafiL [Tadalafil] 20 mg PO Q72H PRN PRN Reason: E.D. amLODIPine [Norvasc] 5 mg PO DAILY Discharge Medication List Levothyroxine Sodium [Synthroid] 50 mcg PO DAILY 05/27/16 [History] Meclizine [Antivert] 12.5 mg PO TID PRN 01/24/21 [History] Tamsulosin HCl [Flomax] 0.4 mg PO DAILY 01/24/21 [History] Follow up Appointment(s)/Referral(s): Marcus Saba DO [STAFF PHYSICIAN] - 02/07/21 3:00 pm Enzo Cm DO [Primary Care Provider] - 01/29/21 8:50 am Patient Instructions/Handouts: Hypotension (GEN), Dizziness (GEN) Activity/Diet/Wound Care/Special Instructions: Pending final DC recommendations and clearance, follow-up appointment as per cardiology. At this time will maintain patient off of antihypertensives unless otherwise advised as per cardiology.Patient to maintain log of q am blood pressures with upper arm cuff, and take to follow-up visit with both PCP and cardiology for further recommendations. Discharge Disposition: HOME SELF-CARE
== END 2021-01-25 15:16 | disposition home or self-care (01) ==
LOC: EC 21:48 → 6NMEDSUR 01-24 01:10 → UNDODISOB 01-24 09:10
PROVIDERS: ADMIT Family Medicine; ATTEND Family Medicine
DX: I95.1 Orthostatic hypotension (principal); I65.23 Occlusion and stenosis of bilateral carotid arteries; I10 Essential (primary) hypertension; C85.90 Non-Hodgkin lymphoma, unspecified, unspecified site; I45.10 Unspecified right bundle-branch block; E03.9 Hypothyroidism, unspecified; H91.91 Unspecified hearing loss, right ear; Z20.822 Contact with and (suspected) exposure to COVID-19; Z79.890 Hormone replacement therapy; Z79.899 Other long term (current) drug therapy; Z85.038 Personal history of other malignant neoplasm of large intestine; Z90.49 Acquired absence of other specified parts of digestive tract; Z97.4 Presence of external hearing-aid; Z92.21 Personal history of antineoplastic chemotherapy; Z92.3 Personal history of irradiation; Z87.891 Personal history of nicotine dependence; Z80.9 Family history of malignant neoplasm, unspecified
CPT/HCPCS: 96376; 96361 ×3; 96374; 99285; 36415; 94760; 93005; 80053; 80048; 83605; 84484; 85025; 81003; 87635; 70498; G0378 ×2; C9113 ×2; Q9967

== ENCOUNTER 2021-03-12 08:09 | Day surgery (SDC) | payer BC ==
[2021-03-07 11:33] VITALS: BMI 22.1
[~2021-03-12 08:09] MED LIST changes: -DEXAMETHASONE SOD PHOSPHATE 10 MG/ML 1 ML VIAL IV ONE; -HYDROmorphone 0.5 MG/0.5 ML SYRINGE IVP PRN; -MIDAZOLAM 2 MG/2 ML VIAL IV PRN
[2021-03-12 08:45] VITALS: TEMP 97.9
[2021-03-12] MEDS ORDERED: PROPOFOL 10 MG/ML 20 ML VIAL IV ONE (09:18)
--- NOTE | 2021-03-12 09:21 | P.GSHP ---
History of Present Illness H&P Date: 03/12/21 Chief Complaint: Colon cancer screening 70-year-old male here today for colonoscopy. Last colonoscopy 3 years ago. Patient with history of colon cancer. No bowel complaints. Past Medical History Past Medical History: Cancer, Hearing Disorder / Deafness, Hypertension, Osteoarthritis (OA), Prostate Disorder, Thyroid Disorder Additional Past Medical History / Comment(s): HX LYMPHOMA 2005, BILATERAL HEARING LOSS R/T RADIATION. HX COLON CANCER 4-5 YRS AGO. History of Any Multi-Drug Resistant Organisms: None Reported Past Surgical History: Bowel Resection Additional Past Surgical History / Comment(s): COLONOSCOPY. Past Anesthesia/Blood Transfusion Reactions: No Reported Reaction Past Psychological History: No Psychological Hx Reported Smoking Status: Former smoker Past Alcohol Use History: Occasional Additional Past Alcohol Use History / Comment(s): SMOKED 30-35 YEARS, 1 - 1 1/2 PPD, QUIT 2009. Past Drug Use History: None Reported - Past Family History Brother(s) Family Medical History: Cancer Mother Family Medical History: No Reported History Medications and Allergies Home Medications Medication Instructions Recorded Confirmed Type Levothyroxine Sodium [Synthroid] 50 mcg PO DAILY 05/27/16 03/12/21 History Meclizine [Antivert] 12.5 mg PO TID PRN 01/24/21 03/12/21 History Tamsulosin HCl [Flomax] 0.4 mg PO DAILY 01/24/21 03/12/21 History Allergies Allergy/AdvReac Type Severity Reaction Status Date / Time No Known Allergies Allergy Verified 03/12/21 08:37 Surgical - Exam Vital Signs Temp Pulse Resp BP Pulse Ox 97.9 F 94 16 177/98 98 03/12/21 08:43 03/12/21 08:43 03/12/21 08:43 03/12/21 08:43 03/12/21 08:43 Physical exam: General: Well-developed, well-nourished HEENT: Normocephalic, sclerae nonicteric Abdomen: Nontender, nondistended Extremities: No edema Neuro: Alert and oriented Assessment and Plan (1) Colon cancer screening Narrative/Plan: Will proceed with colonoscopy Current Visit: No Status: Acute Code(s): Z12.11 - ENCOUNTER FOR SCREENING FOR MALIGNANT NEOPLASM OF COLON SNOMED Code(s): 388883129
--- NOTE | 2021-03-12 09:36 | P.PCN ---
Date of Procedure: 03/12/21 Procedure(s) Performed: PREOPERATIVE DIAGNOSIS: Colon cancer screening, personal history of colon cancer POSTOPERATIVE DIAGNOSIS: Normal exam PROCEDURE: Colonoscopy ANESTHESIA: MAC SURGEON: Leonides Blandon M.D. SPECIMENS: None ENDOSCOPIC PROCEDURE: The patient was placed on the endoscopy table in the left decubitus position. The Olympus colonoscope was inserted into the anus and passed under direct visualization to the base of the cecum. The appendiceal orifice was visualized. From that point the scope was slowly withdrawn inspecting all surfaces carefully. There were no neoplastic inflammatory or polypoid lesions throughout the cecum, ascending, transverse, descending, and rectum. The previous colorectal anastomosis was widely patent. There was no visible diverticulosis noted. Digital rectal examination was normal. The patient was taken to the recovery room in stable condition per anesthesia guidelines. RECOMMENDATIONS: Resume diet. Follow-up colonoscopy in 5 years.
[2021-03-12 09:59] VITALS: BP 156/98; PULSE 80; RESP 16
== END 2021-03-12 10:24 | disposition home or self-care (01) ==
LOC: ORWHC2ENDO 08:09
PROVIDERS: ATTEND Surgery
DX: Z12.11 Encounter for screening for malignant neoplasm of colon (principal); Z85.038 Personal history of other malignant neoplasm of large intestine; Z98.0 Intestinal bypass and anastomosis status; I10 Essential (primary) hypertension; M19.90 Unspecified osteoarthritis, unspecified site; N40.0 Benign prostatic hyperplasia without lower urinary tract symptoms; E07.9 Disorder of thyroid, unspecified; Z85.72 Personal history of non-Hodgkin lymphomas; H91.93 Unspecified hearing loss, bilateral; Z87.891 Personal history of nicotine dependence; Z80.9 Family history of malignant neoplasm, unspecified; Z79.890 Hormone replacement therapy; Z79.899 Other long term (current) drug therapy
CPT/HCPCS: G0105; J2704

== ENCOUNTER → 2021-08-05 | Outpatient (CLI) | payer BC, MEDICARE, OTHER ==
--- NOTE | 2021-08-05 10:11 | CT ---
EXAMINATION TYPE: CT ChestAbdPelvis w con DATE OF EXAM: 08/05/2021 COMPARISON: 07/30/2020, 05/13/2019 HISTORY: 70-year-old male follow up colon cancer. C18.7 Colon cancer, C76.0 head/neck cancer TECHNIQUE: Contiguous axial scanning of the chest, abdomen, and pelvis performed with IV Contrast, pa tient injected with 100 mL of Isovue 300. Delayed images through the kidneys were obtained. Coronal/s agittal reconstructions performed. CT DLP: 551.3 mGycm Automated exposure control for dose reduction was used. FINDINGS: CHEST: Heart normal size without pericardial effusion. Three-vessel coronary artery calcifications are prese nt. Ectatic aortic ending ureter at 3.7 cm. Ectatic upper descending thoracic aorta 3.3 cm. Redemonstrate d occlusion of the left common carotid artery just after its origin. Scattered nonenlarged mediastinal lymph nodes are unchanged. No thoracic lymphadenopathy by CT size c riteria. Some strandy basilar atelectasis. Stable tiny calcified granuloma inferior lingula. Mild diffuse bron chial wall thickening and medial biapical pleural parenchymal scarring is unchanged. Very mild emphys ematous change in the upper lungs. No consolidation or pleural effusion. ABDOMEN: Tiny hiatal hernia. No focal liver lesion or biliary ductal dilatation. Portal venous system is patent. Gallbladder, adrenal glands, spleen, and pancreas appear within normal limits. Redemonstrated bilateral renal cysts, largest measuring 4.5 cm. The medial upper pole cyst on the rig ht measures 3.5 cm, stable from prior, again with intermediate attenuation suggesting a proteinaceous or complicated cyst. Moderate atherosclerotic calcifications infrarenal abdominal aorta without aneurysm. No dilated small bowel, free fluid, free air. Moderate to large stool burden without pericolonic inflammatory change. Normal appendix. Oral contras t progressed to the cecum. There is a staple line at the rectosigmoid junction from prior resection a nd re-anastomosis. No mesenteric or retroperitoneal lymphadenopathy. PELVIS: Bladder is urine distended. Prostate gland is enlarged at 4.9 cm wide. No abnormal fluid collection i n the pelvis or pelvic lymphadenopathy. Redemonstrated is mild to moderate stenosis secondary to plaq ue within the left common femoral artery. BONES: Mild degenerative change of the hips. Moderate degenerative disc disease L5-S1. No osseous destructiv e process. IMPRESSION: 1. STATUS POST RESECTION AND REANASTOMOSIS AT THE RECTOSIGMOID JUNCTION. STABLE EXAM WITHOUT EVIDENCE FOR PROGRESSION OR RECURRENCE. 2. INCIDENTAL: KNOWN LEFT COMMON CAROTID ARTERY OCCLUSION JUST AFTER ITS TAKEOFF. COPD WITH MINIMAL E MPHYSEMA. MODERATE TO LARGE STOOL BURDEN. NUMEROUS BILATERAL RENAL CYSTS. MILD PROSTATOMEGALY AT 4.9 CM WIDE.
== END | disposition home or self-care (01) ==
LOC: RADCTMAIN 07:24
PROVIDERS: ATTEND Internal Medicine Hematology & Oncology
DX: C76.0 Malignant neoplasm of head, face and neck (principal); J43.9 Emphysema, unspecified; N28.1 Cyst of kidney, acquired
CPT/HCPCS: 82565; 84520; 71260; 74177; 36415; Q9967

== ENCOUNTER → 2022-04-14 | Outpatient (CLI) | payer MEDICARE, OTHER ==
--- NOTE | 2022-04-14 21:44 | CT ---
EXAMINATION TYPE: CT angio neck DATE OF EXAM: 04/14/2022 HISTORY: carotid stenosis COMPARISON: CTA neck report 09/26/2020. Images not available due to PACS downtime. CT DLP: 278.80 mGycm. Automated Exposure Control for Dose Reduction was Utilized. TECHNIQUE: CTA scan of the head and neck is performed with IV Contrast, patient injected with 65 mL of Isovue 300, axial images are obtained, coronal and sagittal reformatted images are reviewed. 3D re constructed images are created on an independent workstation and reviewed. FINDINGS: Carotid/Vascular Structures: There is three-vessel origin from the aortic arch. There is right common carotid artery shows normal origin from the right brachiocephalic artery. Complete occlusion of the left common carotid artery shortly after its origin. No significant plaque or stenosis along the righ t common carotid artery. Mghy-[id number] peripheral calcified plaque right carotid bulb extends into proximal internal carotid artery without significant stenosis. Short segment linear area just distal to the could reflect focal chronic dissection axial image 101. Remainder of the right internal carot id artery shows mild calcified plaque without significant stenosis. There is some visualization of th e distal left internal carotid artery likely from retrograde flow. Patent anterior communicating leland ry incidentally noted. Patent right external carotid artery without significant stenosis. Dominant right vertebral artery. Vertebral arteries are patent to the basilar junction. Other: Scoliotic curvature of the cervicothoracic spine. Small-sized thyroid gland. Mild emphysematou s change in the upper lungs with moderate biapical pleural/parenchymal scarring. IMPRESSION: Complete occlusion of the left common carotid artery shortly after its origin as describe d on prior report. No hemodynamically significant stenosis in the right common or internal carotid ar chayito similar to prior report. Mild to moderate atherosclerotic changes with tiny focal chronic dissec tion is present. NASCET criteria was used in interpretation of this exam?
== END | disposition home or self-care (01) ==
LOC: RADCTMAIN 14:18
PROVIDERS: ATTEND Surgery
DX: I65.23 Occlusion and stenosis of bilateral carotid arteries (principal)
CPT/HCPCS: 82565; 84520; 70498; 36415; Q9967